=== PATIENT | male | born 1960 | race African-American/Black ===

== ENCOUNTER 2016-09-12 15:28 | Emergency (ER) | payer OTHER ==
[~2016-09-12] VITALS: Ht 195.6 cm; Wt 81.7 kg
[2016-09-12 18:10] VITALS: BP 176/112
== END 2016-09-12 19:50 | disposition home or self-care (01) ==
LOC: ER 15:28
DX: F20.9 Schizophrenia, unspecified (principal); Z59.0 Homelessness; Z91.14 Patient's other noncompliance with medication regimen; Z00.00 Encounter for general adult medical examination without abnormal findings